=== PATIENT | male | born 1990 | race Asian ===

== ENCOUNTER 2016-11-22 09:28 | Emergency (ER) | payer BC, OTHER ==
[~2016-11-22 09:28] MED LIST: DPKSR250 PO; DPKSR500 PO
[2016-11-22 09:32] VITALS: TEMP 36.7
[2016-11-22] MEDS ORDERED: LIDOCAINE 4% W/AFRIN NASAL SOLN 4ML EXT STA (09:43)
[2016-11-22] MEDS ORDERED: ACETAMINOPHEN SUSP 160 MG/5 ML UDC PO STA (09:43)
--- NOTE | 2016-11-22 09:59 | EMERGENCY ROOM VISIT NOTE ---
History Report prepared by Issaciblyndsey: Yvon Moore Under the Supervision of: Dr. Hugo Waldrop M.D. First contact with patient: 09:36 Chief Complaint: HEAD INJURY (MINOR) Stated Complaint: BAD NOSE BLEED,POSSIBLE CONCUSSION History of Present Illness The patient is a 26 year old male who presents to the Emergency Room with complaints of a head injury occurring last night. The patient has a history of MR. He has a history of seizures, but has not had one in a long time. Per caregiver, the patient was found in the morning with blood on his face and mouth. She notes that there was dried blood on the floor as well. She believes that the patient may have fallen out of his computer chair and hit his face during the night. The patient's caregiver notes that the patient has been very tired ever since the fall. She states that the patient does not fall frequently. She states that the patient took his Depakote today as normal. The patient's caregiver states that the patient has not been complaining of anything over the past several days. The patient's tetanus is up to date. HPI limited secondary to MR. Source of History: patient History Limited By: other (MR) Onset: Last night Position: head Timing: other (episode) Review of Systems ROS limited secondary to MR. Past Medical & Surgical Medical Problems: (1) Epilepsy (2) Mental retardation Family History Unobtainable secondary to MR. Social History Smoking Status: Never Smoker Housing Status: assisted living Current/Historical Medications Scheduled Cyanocobalamin (Vitamin B-12), 1,000 MCG PO PM Divalproex Sodium (Depakote), 3 TAB PO BID Loratadine (Claritin), 10 MG PO QAM Quetiapine Fumarate (Seroquel), 100 MG PO QAM Thiamine Hcl (Vitamin B-1), 50 MG PO QAM Trazodone Hcl (Trazodone), 50 MG PO HS Zinc (Zinc Chelated), 1 TAB PO PM Allergies Coded Allergies: Minocycline (Unverified Allergy, Intermediate, CONTRAINDICATED, 11/22/16) POLLEN (Unverified Allergy, Mild, 11/22/06) Uncoded Allergies: N (Allergy, Unknown, 07/01/02) NKA (Allergy, Unknown, 07/01/02) Physical Exam Vital Signs Date Time Temp Pulse Resp B/P (MAP) Pulse Ox O2 Delivery O2 Flow Rate FiO2 11/22/16 09:32 36.7 117 20 116/73 97 Room Air Physical Exam GENERAL: Patient is in no acute distress. HEENT: Dried blood about his face. Nose is quite swollen and tender, likely fractured. No deformity. Old blood and scant oozing of blood in the nose, primarily on the right. No bony step off noted to the face. Globes appear uninjured. No scalp hematoma. Dried blood on the lips and mouth. No oral or lip lacerations. Slight loosening of the upper right first incisor with some bleeding of the gumline. No dental fractures seen. NECK: No stridor, no adenopathy, no meningismus, trachea is midline. Non-tender cervical spine without step off. LUNGS: Clear to auscultation bilaterally, no wheeze, no rhonchi, breath sounds equal. HEART: Tachycardic with a regular rhythm. No murmurs. ABDOMEN: Soft, nontender, bowel sounds positive, no hernias, no peritonitis. EXTREMITIES: No cyanosis or edema, full range of motion of all the joints without pain or difficulty. Subtle abrasions to the anterior knees and dorsal hands. No evidence for underlying fracture. NEUROLOGIC: MR noted. Moving all extremities equally. Awake and alert. SKIN: No rash, no jaundice, no diaphoresis. Medical Decision & Procedures ER Provider Diagnostic Interpretation: CT results as stated below per my review and radiologist interpretation: CERVICAL SPINE CT FINDINGS: No fractures. No subluxation. Prevertebral soft tissues and the C1-C2 interval are intact. No pneumothorax. IMPRESSION: No fractures within the cervical spine. Mild cervical scoliosis Electronically signed by: Adan Doyle M.D. HEAD WITHOUT CONTRAST (CT) FINDINGS: No acute intracranial hemorrhage, midline shift, mass, large territorial ischemia or abnormal extra-axial collection. The calvarium is intact. Mastoid air cells, and middle ear cavities are clear. Mild mucosal thickening is present within the ethmoid and maxillary sinuses. Bubbly secretions with minimal air-fluid level noted within the left maxillary sinus. IMPRESSION: 1. No acute intracranial abnormality. 2. Mild ethmoid and maxillary sinus disease. Electronically signed by: Jeffrey Anaya FACIAL BONES-MXILLOFAC WITHOUT FINDINGS: The patient is rotated in the gantry.The zygomatic arches, pterygoid plates, maxillary [place], lamina Propecia and mandible are intact. The orbits also appear to be intact. There is a questioned subtle undisplaced fracture of the left nasal bone. There is mild degree of soft tissue swelling of the left prefrontal soft tissues. No radiopaque foreign body or large hematoma. Moderate soft tissue swelling is also present within the central and right paracentral premaxillary tissues. The imaged intracranial structures are unremarkable. The globes are unremarkable. The imaged cervical spine appears intact. There is mild to moderate ethmoid and maxillary sinus disease with areas of polypoid mucosal thickening. Secretions are present within the right nasal turbinate. IMPRESSION: 1. Mild to moderate soft tissue swelling about the face with questioned subtle left nasal bone fracture. No additional facial bone fracture or dislocation is identified. 2. Mild to moderate ethmoid and maxillary sinus disease with areas of polypoid mucosal thickening. The above report was generated using voice recognition software. It may contain grammatical, syntax or spelling errors. Electronically signed by: Jeffrey Anaya Laboratory Results Test 11/22/16 10:07 Valproic Acid (Depakene) Level 71 mcg/ml (50-100) Laboratory results reviewed by me. Medications Administered Medications (Trade) Dose Ordered Sig/Aggie Route Start Time Stop Time Status Last Admin Dose Admin Lidocaine HCl (Afrin W/ Lidocaine 4%) 4 ml NOW STAT EXT 11/22/16 09:43 11/22/16 09:45 DC 11/22/16 09:53 4 ML Acetaminophen (Tylenol Children'S Susp) 650 mg NOW STAT PO 11/22/16 09:43 11/22/16 09:46 DC 11/22/16 09:52 650 MG ED Course 0937: The patient was evaluated in room A4B. A complete history and physical exam was performed. 0943: Ordered Tylenol Children's Susp 650 mg PO, Afrin W/Lidocaine 4% 4 mL EXT. 1115: Reevaluated the patient. His parents have arrived. Discussed results and discharge instructions: the patient's parents and caregiver verbalized understanding and agreement. The patient is ready for discharge. Medical Decision The patient is a 26 year old male who presents to the ED with complaints of a head injury s/p fall. Differential diagnoses considered include but are note limited to; seizure, intracranial bleeding, skull fracture, facial fracture, c- spine fracture, and extremity/chest/abdominal trauma. The patient presents with facial trauma from a fall or possibly from a seizure. He has no evidence clinically for injury to his extremities, chest, abdomen or back. Depakote level is therapeutic. On exam, he had some loosening of his right upper first incisor, no dental fracture, no laceration in the mouth requiring repair. No facial laceration requiring repair. Brain CT shows no acute bleed or mass effect, no skull fracture. C-spine CT shows no fracture. Facial CT shows a subtle nasal fracture, no other fractures identified. The patient was given Afrin to help with the nasal bleeding. He received oral Tylenol for pain. He has done well here. His face was cleansed by our nursing staff. The patient is being discharged. The nasal fracture should heal on its own. He is going to see a dentist for the teeth loosening. I have advised Tylenol, head elevation with sleeping and ice. If worsening, he can return. Impression Primary Impression: Nasal fracture Additional Impression: Facial trauma Scribe Attestation The scribe's documentation has been prepared under my direction and personally reviewed by me in its entirety. I confirm that the note above accurately reflects all work, treatment, procedures, and medical decision making performed by me. Departure Information Dispostion Home / Self-Care Referrals No Doctor, Assigned (PCP) Forms HOME CARE DOCUMENTATION FORM, IMPORTANT VISIT INFORMATION Patient Instructions My [facility] Additional Instructions elevation of head to sleep will help with swelling ice to help with swelling tylenol for pain may use afrin, 1-2 sprays to the nose for persistent bleeding see dentist for the lose tooth return for worsening symptoms Problem Qualifiers
[2016-11-22] MEDS ORDERED: QUET1TAB9 PO (10:17)
[2016-11-22] MEDS ORDERED: DIVA125T18 PO (10:17)
[2016-11-22] MEDS ORDERED: THIA50TA3 PO (10:17)
[2016-11-22] MEDS ORDERED: ZINC1TAB PO (10:17)
[2016-11-22] MEDS ORDERED: CLR10 PO (10:17)
[2016-11-22] MEDS ORDERED: CYAN10005 PO (10:17)
[2016-11-22] MEDS ORDERED: TRAZ50TA35 PO (10:17)
--- NOTE | 2016-11-22 10:52 | DIAGNOSTIC IMAGING REPORT ---
FACIAL BONES-MXILLOFAC WITHOUT HISTORY:26 yearsMalefall, trauma. COMPARISON: CT head of same day. TECHNIQUE: Multiple axial CT images of the maxillofacial bones were obtained without IV contrast. Coronal reformatted images were obtained from the axial data set and submitted for review. FINDINGS: The patient is rotated in the gantry.The zygomatic arches, pterygoid plates, maxillary [place], lamina Propecia and mandible are intact. The orbits also appear to be intact. There is a questioned subtle undisplaced fracture of the left nasal bone. There is mild degree of soft tissue swelling of the left prefrontal soft tissues. No radiopaque foreign body or large hematoma. Moderate soft tissue swelling is also present within the central and right paracentral premaxillary tissues. The imaged intracranial structures are unremarkable. The globes are unremarkable. The imaged cervical spine appears intact. There is mild to moderate ethmoid and maxillary sinus disease with areas of polypoid mucosal thickening. Secretions are present within the right nasal turbinate. IMPRESSION: 1. Mild to moderate soft tissue swelling about the face with questioned subtle left nasal bone fracture. No additional facial bone fracture or dislocation is identified. 2. Mild to moderate ethmoid and maxillary sinus disease with areas of polypoid mucosal thickening. The above report was generated using voice recognition software. It may contain grammatical, syntax or spelling errors. Electronically signed by: Jeffrey Anaya 11/22/2016 10:49 AM Dictated Date/Time: 11/22/2016 10:40 AM
--- NOTE | 2016-11-22 10:52 | DIAGNOSTIC IMAGING REPORT ---
HEAD WITHOUT CONTRAST (CT) HISTORY: 18-year-old male presents with acute head injury status post fall. TECHNIQUE: Multiple axial CT images of the head were obtained without contrast. COMPARISON: Head CT 11/22/2006. FINDINGS: No acute intracranial hemorrhage, midline shift, mass, large territorial ischemia or abnormal extra-axial collection. The calvarium is intact. Mastoid air cells, and middle ear cavities are clear. Mild mucosal thickening is present within the ethmoid and maxillary sinuses. Bubbly secretions with minimal air-fluid level noted within the left maxillary sinus. IMPRESSION: 1. No acute intracranial abnormality. 2. Mild ethmoid and maxillary sinus disease. Electronically signed by: Jeffrey Anaya 11/22/2016 10:39 AM Dictated Date/Time: 11/22/2016 10:37 AM
--- NOTE | 2016-11-22 10:52 | DIAGNOSTIC IMAGING REPORT ---
CERVICAL SPINE CT CT DOSE: 1123.86 mGy.cm HISTORY: Trauma. Pain. fall, trauma, mh TECHNIQUE: Multiaxial CT images of the cervical spine were performed and reformatted in the sagittal and coronal plane without the use of contrast. COMPARISON: None. FINDINGS: No fractures. No subluxation. Prevertebral soft tissues and the C1-C2 interval are intact. No pneumothorax. IMPRESSION: No fractures within the cervical spine. Mild cervical scoliosis Electronically signed by: Adan Doyle M.D. 11/22/2016 10:38 AM Dictated Date/Time: 11/22/2016 10:36 AM
[2016-11-22 11:49] VITALS: BP 120/68; PULSE 90; O2SAT 98
== END 2016-11-22 11:52 | disposition home or self-care (01) ==
LOC: C.EDB 09:29 → C.EDA 11:52
DX: S02.2XXA Fracture of nasal bones, initial encounter for closed fracture (principal); W07.XXXA Fall from chair, initial encounter; I34.0 Nonrheumatic mitral (valve) insufficiency; G40.909 Epilepsy, unspecified, not intractable, without status epilepticus; F79 Unspecified intellectual disabilities; Z79.899 Other long term (current) drug therapy

== ENCOUNTER 2016-12-08 09:51 | Emergency (ER) | payer BC, OTHER ==
[~2016-12-08] VITALS: Ht 167.6 cm; Wt 80.8 kg
[~2016-12-08 09:51] MED LIST changes: +CLR10 PO; +CYAN10005 PO; +DIVA125T18 PO; -DPKSR250 PO; -DPKSR500 PO; +QUET1TAB9 PO; +THIA50TA3 PO; +TRAZ50TA35 PO; +ZINC1TAB PO
[2016-12-08 09:55] VITALS: TEMP 36.5; Ht 167.6 cm; Wt 80.8 kg
[2016-12-08] MEDS ORDERED: LORAZEPAM 2 MG/ML 1 ML VIAL IV STA ×2 (10:32→11:32)
[2016-12-08] MEDS ORDERED: XYLOCAINE 1%/SOD BICARB 20 ML VIAL INFIL STA (10:32)
[2016-12-08] MEDS ORDERED: DIVALPROEX 500 MG EXTENDED RELEASE TAB PO STA (10:42)
[2016-12-08] MEDS ORDERED: SODIUM CHLORIDE 0.9% 1000ML 1,000 ML IV STA (10:44)
--- NOTE | 2016-12-08 10:44 | EMERGENCY ROOM VISIT NOTE ---
History Report prepared by Emelyn: Nighat Walls Under the Supervision of: Dr. Saul Valdez M.D. First contact with patient: 10:00 Chief Complaint: SEIZURE Stated Complaint: SEIZURE History of Present Illness The patient is a 26 year old male who presents to the Emergency Room with complaints of an episode of a seizure beginning just EMT/PARAMEDIC. The patient's parents report that the patient has a history of mental disability and seizures and has been on Depakote for 10 years. They report that the patient had one episode of a seizure 10 years ago and has not had one since then. They note that when the patient was seen here 2 weeks ago he had loss of consciousness and a nasal bone fracture. They report that there was concern that he had another seizure. The patient's caregiver states that the patient is on Seroquel, Trazodone, and Depakote and was put on the Seroquel and Trazodone 1 month ago to help the patient's sleep. She reports that no one saw the patient's fall either time. Today the parents report that the patient was in the room alone when the episode occurred and they only saw him fall to the ground onto his face. They note that he was slightly confused after the episode and was disoriented. Since then, they state that he is back at baseline and deny any confusion. They note that he does see a neurologist at [facility]. Source of History: parent, caregiver Onset: just EMT/PARAMEDIC Position: other (global) Quality: other (seizure) Timing: other (episode) Associated Symptoms: + LOC Note: Parents complain of disorientation after LOC. They deny and confusion now. Review of Systems See HPI for pertinent positives & negatives. A total of 10 systems reviewed and were otherwise negative. Past Medical & Surgical Medical Problems: (1) Epilepsy (2) Mental retardation Family History No pertinent family history stated. Social History Smoking Status: Never Smoker Marital Status: single Housing Status: assisted living Occupation Status: disabled Current/Historical Medications Scheduled Amoxicillin (Amoxil), 500 MG PO TID Cyanocobalamin (Vitamin B-12), 1,000 MCG PO PM Divalproex Sodium (Depakote), 3 TAB PO BID Divalproex Sodium (Depakote Delay Rel), 500 MG PO BID Loratadine (Claritin), 10 MG PO QAM Quetiapine Fumarate (Seroquel), 100 MG PO QAM Thiamine Hcl (Vitamin B-1), 50 MG PO QAM Trazodone Hcl (Trazodone), 50 MG PO HS Zinc (Zinc Chelated), 1 TAB PO PM Allergies Coded Allergies: Minocycline (Unverified Allergy, Intermediate, CONTRAINDICATED, 12/08/16) POLLEN (Unverified Allergy, Mild, 12/08/16) Physical Exam Vital Signs Date Time Temp Pulse Resp B/P (MAP) Pulse Ox O2 Delivery O2 Flow Rate FiO2 12/08/16 15:30 127 22 119/89 99 Room Air 12/08/16 15:00 125 20 126/83 99 Room Air 12/08/16 14:30 126 22 127/81 98 Room Air 12/08/16 13:45 120 22 124/77 100 Nasal Cannula 2.0 12/08/16 13:30 130 26 133/80 100 Nasal Cannula 2.0 12/08/16 13:15 129 20 135/86 100 Nasal Cannula 2.0 12/08/16 13:07 126 12/08/16 13:00 128 25 124/83 100 Nasal Cannula 2.0 12/08/16 12:50 113 19 128/76 100 Nasal Cannula 6.0 12/08/16 12:45 115 18 112/76 100 Nasal Cannula 6.0 12/08/16 12:40 118 19 122/64 100 Nasal Cannula 6.0 12/08/16 12:35 127 7 127/79 100 Nasal Cannula 6.0 12/08/16 12:30 133 6 117/83 98 Room Air 12/08/16 12:25 119 10 153/81 98 Room Air 12/08/16 12:22 130 20 153/81 100 Room Air 12/08/16 11:30 119 18 128/79 98 Room Air 12/08/16 11:00 128 19 137/89 96 Room Air 12/08/16 10:03 146 12/08/16 09:55 36.5 149 16 137/76 96 Room Air 12/08/16 09:55 96 Room Air 12/08/16 09:55 96 Room Air 12/08/16 09:55 36.5 149 16 137/76 96 Room Air Physical Exam GENERAL: Patient is a healthy-appearing well-nourished male HEAD: Large contusion to the forehead that is about 2x2 inches. Small abrasion to the bridge of the nose. There is a 2.6 cm laceration to the upper lip. EYES: Ocular movements intact pupils equal and react to light OROPHARYNX mucous membranes are moist no exudates present no erythema or edema present NECK: Supple no nuchal rigidity CHEST: Good equal expansion LUNGS: Clear and equal to auscultation CARDIAC: Normal S1 and S2 ABDOMEN: Soft nontender no guarding BACK: No CVA tenderness EXTREMITIES: No pain upon palpation normal muscle strength in all groups no clubbing cyanosis or edema NEURO: Patient is following commands. Alert and oriented x3 Cranial Nerves 2-12 grossly intact Medical Decision & Procedures ER Provider Diagnostic Interpretation: CT results as stated below per my review and radiologist interpretation: CT HEAD WITHOUT CONTRAST (CT) FINDINGS: No intra or extra-axial mass lesions are visualized. There is no CT evidence of acute cortical infarction. There is no evidence of midline shift. There is no acute hemorrhage. There is a frontal scalp hematoma. There is perinasal edema. There is a nasal septal fracture. There is no evidence of pathologic ventricular dilatation. There is no evidence of acute sinusitis IMPRESSION: 1. Frontal scalp hematoma 2. Nasal septal fracture and paranasal edema 3. No evidence of acute intracranial hemorrhage Electronically signed by: Andrez Cantor M.D. 12/08/2016 11:21 AM Dictated Date/Time: 12/08/2016 11:18 AM Laboratory Results 12/08/16 10:10 Red Blood Count 4.80, Mean Corpuscular Volume 85.6, Mean Corpuscular Hemoglobin 29.6, Mean Corpuscular Hemoglobin Concent 34.5, Mean Platelet Volume 10.8, Neutrophils (%) (Auto) 50.1, Lymphocytes (%) (Auto) 40.0, Monocytes (%) (Auto) 7.5, Eosinophils (%) (Auto) 1.5, Basophils (%) (Auto) 0.4, Neutrophils # (Auto) 4.08, Lymphocytes # (Auto) 3.26, Monocytes # (Auto) 0.61, Eosinophils # (Auto) 0.12, Basophils # (Auto) 0.03 12/08/16 10:10 Test 12/08/16 10:10 12/08/16 11:06 White Blood Count 8.14 K/uL (4.8-10.8) Red Blood Count 4.80 M/uL (4.7-6.1) Hemoglobin 14.2 g/dL (14.0-18.0) Hematocrit 41.1 % (42-52) Mean Corpuscular Volume 85.6 fL (80-100) Mean Corpuscular Hemoglobin 29.6 pg (25-34) Mean Corpuscular Hemoglobin Concent 34.5 g/dl (32-36) Platelet Count 268 K/uL (130-400) Mean Platelet Volume 10.8 fL (7.4-10.4) Neutrophils (%) (Auto) 50.1 % Lymphocytes (%) (Auto) 40.0 % Monocytes (%) (Auto) 7.5 % Eosinophils (%) (Auto) 1.5 % Basophils (%) (Auto) 0.4 % Neutrophils # (Auto) 4.08 K/uL (1.4-6.5) Lymphocytes # (Auto) 3.26 K/uL (1.2-3.4) Monocytes # (Auto) 0.61 K/uL (0.11-0.59) Eosinophils # (Auto) 0.12 K/uL (0-0.5) Basophils # (Auto) 0.03 K/uL (0-0.2) RDW Standard Deviation 37.1 fL (36.4-46.3) RDW Coefficient of Variation 12.0 % (11.5-14.5) Immature Granulocyte % (Auto) 0.5 % Immature Granulocyte # (Auto) 0.04 K/uL (0.00-0.02) Anion Gap 10.0 mmol/L (3-11) Est Creatinine Clear Calc Drug Dose 140.8 ml/min Estimated GFR () 142.4 Estimated GFR (Non- 122.8 BUN/Creatinine Ratio 16.4 (10-20) Calcium Level 8.9 mg/dl (8.5-10.1) Phosphorus Level 2.3 mg/dl (2.5-4.9) Magnesium Level 2.3 mg/dl (1.8-2.4) Thyroid Stimulating Hormone (TSH) 0.414 uIu/ml (0.300-4.500) Valproic Acid (Depakene) Level 73 mcg/ml (50-100) Bedside Glucose 109 mg/dl (70-99) Labs reviewed by ED physician. Medications Administered Medications (Trade) Dose Ordered Sig/Aggie Route Start Time Stop Time Status Last Admin Dose Admin Lorazepam (Ativan Inj) 1 mg NOW STAT IV 12/08/16 10:32 12/08/16 10:34 DC 12/08/16 10:52 1 MG Lidocaine HCl (Buffered Lidocaine 1% Inj) 20 ml ONE STAT INFIL 12/08/16 10:32 12/08/16 10:34 DC 12/08/16 10:52 20 ML Divalproex Sodium (Depakote Extended Rel Tab) 500 mg NOW STAT PO 12/08/16 10:42 12/08/16 10:44 DC 12/08/16 10:52 500 MG Sodium Chloride 1,000 ml @ 999 mls/hr Q1H1M STAT IV 12/08/16 10:44 12/08/16 11:44 DC 12/08/16 10:54 999 MLS/HR Lorazepam (Ativan Inj) 1 mg NOW STAT IV 12/08/16 11:32 12/08/16 11:33 DC 12/08/16 11:39 1 MG Ketamine HCl (Ketalar Steri-Vial Inj) 40 mg NOW STAT IV 12/08/16 12:06 12/08/16 12:07 DC 12/08/16 12:49 40 MG Propofol (Diprivan Iv Emulsion 20ml Vial) 40 mg NOW STAT IV 12/08/16 12:06 12/08/16 12:07 DC 12/08/16 12:48 190 MG Metoclopramide HCl (Reglan Inj) 10 mg NOW STAT IV 12/08/16 12:06 12/08/16 12:07 DC 12/08/16 12:23 10 MG Procedure Procedural Sedation Indication: Laceration Repair. Total time: 19 minutes. Written consent was obtained after the risks and benefits were explained to the patient's parents, including, but not limited to aspiration, allergic reaction, breathing difficulties, cardiac complications, vomiting, pain, event recall, bleeding, and/or infection. Pre-sedation examination and paperwork completed. The patient was on 100% oxygen via NRB prior to the procedure. Continous end tidal CO2 monitoring, pulse oximetry, and cardiac monitoring were utilized. Suction, airway equipment, medications, respiratory equipment, and appropriate personnel were prepared prior to the initiation of the procedure. A time out was taken. Sedation was achieved utilizing 40 mg of Ketamine and 20 of Aliquots. After I observed the patient had reached the appropriate level of sedation the main procedure was performed without complication. Sedation was discontinued and the monitoring continued. The patient recovered quickly from the effects of the medication without complication or adverse event. ECG Indication: other (seizure) Rate (beats per minute): 148 Rhythm: sinus tachycardia Findings: no acute ischemic change, no ectopy ED Course 1000: Past medical records reviewed. The patient was evaluated in room A3. A complete history and physical examination was performed. 1032: Lidocaine HCl 20ml INFIL, Ativan Inj 1mg IV. 1038: I discussed the patient's case with Dr. Gould, he said to give 500mg of Depakote to the patient now and increase the Depakote to 4 pills twice a day. He would like the patient to stop taking the Trazodone. 1042: Divalproex Sodium 500mg PO. 1044: Sodium Chloride 1000 ml @ 999 mls/hr IV. 1132: Ativan Inj 1mg IV. 1206: Reglan Inj 10mg IV, Propofol 40mg IV, Ketamine HCl 40mg IV. 1222: See procedure note for procedural sedation. 1336: Upon reexamination the patient is doing well. I discussed results and treatment plan with the patient's family. They verbalize agreement and understanding. The patient is ready for discharge. Medical Decision Differential diagnosis: Etiologies such as infection, hypoglycemia, electrolyte abnormalities, cardiac sources, intracerebral event, trauma, toxicologic, neurologic, as well as others were entertained. This is a 26-year-old male who presents emergency department complaining of seizure. The patient was seen several weeks ago here in emergency department for what was presumed to be a fall however in retrospect after today's events I do believe it was a seizure. The patient recently was placed on trazodone and Seroquel so I did discuss the case with Dr. Perkins who is on-call for neurology. She asked that the trazodone be stopped and that his Depakote be increased. Myself and my physician assistant production editor tried multiple times to close this patient's wounds by using Ativan however he will not tolerate the procedure and for this a conscious sedation had to be performed. This was done as above. The patient's lacerations were closed by Andre Ballesteros. Head Trauma GCS Score: 14 Medication Reconcilliation Current Medication List: was personally reviewed by me Blood Pressure Screening Patient's blood pressure: Elevated blood pressure Blood pressure disposition: Referred to PCP Consults Time Called: 1035 Consulting Physician: Dr. Gould Returned Call: 1038 I discussed the patient's case with Dr. Gould, he said to give 500mg of Depakote to the patient now and increase the Depakote to 4 pills twice a day. He would like the patient to stop taking the Trazodone. Impression Primary Impression: Seizure Additional Impression: Laceration Scribe Attestation The scribe's documentation has been prepared under my direction and personally reviewed by me in its entirety. I confirm that the note above accurately reflects all work, treatment, procedures, and medical decision making performed by me. Departure Information Dispostion Home / Self-Care Prescriptions Amoxicillin (AMOXIL) 500 Mg Cap 500 MG PO TID for 10 Days, #30 CAP Prov: Saul Valdez MD 12/08/16 Divalproex Sodium (DEPAKOTE DELAY REL) 125 Mg Tab 500 MG PO BID for 30 Days, #240 TAB Prov: Saul Valdez MD 12/08/16 Referrals Nelson Henson, D.Raman (PCP) Forms HOME CARE DOCUMENTATION FORM, IMPORTANT VISIT INFORMATION Patient Instructions ED Fx Nose W Lac Skin Glue, ED Laceration All, ED Sedation Procedural Discon, My [facility] Additional Instructions Follow up with Dr Morris's office STOP taking Trazadone Increase Depakote to 125 mg 4 times a day You were found to have an elevated blood pressure today (>120 sytolic or >90 diastolic). Per medicare guidelines, you need to follow up with this blood pressure screening with your Primary Care Physician (PCP). For a new PCP call [phone]. You have been examined and treated today on an emergency basis only. This is not a substitute for, or an effort to provide, complete comprehensive medical care. It is impossible to recognize and treat all injuries or illnesses in a single emergency department visit. It is therefore important that you follow up closely with Dr Henson. Call as soon as possible for an appointment. Thank you for your time and consideration. I look forward to speaking with you again soon. Please don't hesitate to call us if you have any questions. Problem Qualifiers
[2016-12-08 11:03] LABS: BASO % 0.4 %; BASO ABS # 0.03 K/uL (0-0.2); COMPLETE YES; EOS % 1.5 %; HEMATOCRIT 41.1 % (42-52); IG% 0.5 %; LYMPH ABS # 3.26 K/uL (1.2-3.4); MEAN CELL VOLUME 85.6 fL (80-100); MEAN CORPUSCULAR HEMOGLOBIN 29.6 pg (25-34); MEAN CORPUSCULAR HGB CONC 34.5 g/dl (32-36); MEAN PLATELET VOLUME 10.8 fL (7.4-10.4); MONO % 7.5 %; NEUT % 50.1 %; PLATELET COUNT 268 K/uL (130-400); WHITE BLOOD COUNT 8.14 K/uL (4.8-10.8)
[2016-12-08 11:11] LABS: BUN/CREATININE RATIO 16.4 (10-20); CALCIUM 8.9 mg/dl (8.5-10.1); CREATININE 0.78 mg/dl (0.60-1.40); MAGNESIUM 2.3 mg/dl (1.8-2.4); POTASSIUM 3.6 mmol/L (3.5-5.1)
[2016-12-08 11:22] LABS: PHOSPHORUS 2.3 mg/dl (2.5-4.9); THYROID STIMULATING HORMONE 0.414 uIu/ml (0.300-4.500)
--- NOTE | 2016-12-08 11:22 | DIAGNOSTIC IMAGING REPORT ---
CT HEAD WITHOUT CONTRAST (CT) CLINICAL HISTORY: Seizure. Head trauma. COMPARISON STUDY: 11/22/2016 TECHNIQUE: Axial CT of the brain is performed from the vertex to the skull base. IV contrast was not administered for this examination. A dose lowering technique was utilized adhering to the principles of ALARA. CT DOSE: 687.98 mGy.cm FINDINGS: No intra or extra-axial mass lesions are visualized. There is no CT evidence of acute cortical infarction. There is no evidence of midline shift. There is no acute hemorrhage. There is a frontal scalp hematoma. There is perinasal edema. There is a nasal septal fracture. There is no evidence of pathologic ventricular dilatation. There is no evidence of acute sinusitis IMPRESSION: 1. Frontal scalp hematoma 2. Nasal septal fracture and paranasal edema 3. No evidence of acute intracranial hemorrhage Electronically signed by: Andrez Cantor M.D. 12/08/2016 11:21 AM Dictated Date/Time: 12/08/2016 11:18 AM
[2016-12-08] MEDS ORDERED: METOCLOPRAMIDE HCL INJ 5 MG/ML 2 ML VIAL IV STA (12:06)
[2016-12-08] MEDS ORDERED: KETAMINE HCL INJ 50 MG/ML 10 ML VIAL IV STA (12:06)
[2016-12-08] MEDS ORDERED: PROPOFOL IV EMULSION 10 MG/ML 20 ML VIAL IV STA (12:06)
[2016-12-08 12:22] VITALS: BP 153/81; PULSE 130; O2SAT 100
[2016-12-08 12:25] VITALS: BP 153/81; PULSE 119; O2SAT 98
--- NOTE | 2016-12-08 12:48 | EMERGENCY ROOM VISIT NOTE ---
Post-Moderate Sedation Plan General Date of Moderate Sedation Dec 08, 2016. Vital Signs: Vital Signs Past 12 Hours Date Time Temp Pulse Resp B/P (MAP) Pulse Ox O2 Delivery O2 Flow Rate FiO2 12/08/16 11:30 119 18 128/79 98 Room Air 12/08/16 11:00 128 19 137/89 96 Room Air 12/08/16 10:03 146 12/08/16 09:55 36.5 149 16 137/76 96 Room Air 12/08/16 09:55 96 Room Air 12/08/16 09:55 96 Room Air 12/08/16 09:55 36.5 149 16 137/76 96 Room Air Review - Discharge Plan Post Moderate Sedation Plan: On clinical assessment, the patient appears to have tolerated the conscious sedation without complications. Patient is recovering as anticipated. Patient will continue to be monitored by nursing and may be discharged when conscious sedation discharge criteria are met.
--- NOTE | 2016-12-08 12:48 | EMERGENCY ROOM VISIT NOTE ---
Pre-Mod Sedation Assessment General Date of Moderate Sedation: Dec 08, 2016. Vital Signs: Vital Signs Past 12 Hours Date Time Temp Pulse Resp B/P (MAP) Pulse Ox O2 Delivery O2 Flow Rate FiO2 12/08/16 11:30 119 18 128/79 98 Room Air 12/08/16 11:00 128 19 137/89 96 Room Air 12/08/16 10:03 146 12/08/16 09:55 36.5 149 16 137/76 96 Room Air 12/08/16 09:55 96 Room Air 12/08/16 09:55 96 Room Air 12/08/16 09:55 36.5 149 16 137/76 96 Room Air Review Cardiovascular: regular rate, rhythm, no edema, no gallop, no JVD, no murmur, normal peripheral pulses Abdomen: normal bowel sounds, non tender, soft, no organomegaly, no pulsatile mass, normal rectal exam, occult blood negative Lungs: chest non-tender, lungs clear, normal breath sounds, no respiratory distress, no accessory muscle use Airway Class: II Pre-Sedation Airway Assessment Oral Cavity: Dental Abnormalities Able to Visualize Vocal Cords: No Short Thick Neck: Yes Hx of Sleep Apnea: No Smoking Status: Never Smoker Mallampati Classification: Class II (Sft palate,uvula,fauces visib.) ASA Classification: Class II Procedure Planning Contraindications-for Mod Sed: None Yes Notes The planned sedation has been discussed with the patient and consent obtained. I have identified the patient, determined the appropriateness of sedation and have assessed the patient immediately prior to the procedure. All medicine(s) and interventions are by my order.
[2016-12-08] MEDS ORDERED: DIVA1TAB86 PO (13:31)
[2016-12-08] MEDS ORDERED: AMOX500C3 PO (13:32)
--- NOTE | 2016-12-08 13:46 | EMERGENCY ROOM VISIT NOTE ---
ED Visit Note Patient was seen and evaluated by Dr. Valdez. I was asked to perform primary wound closure. Risks and benefits of performing primary wound closure versus no repair were discussed with the patient who verbalizes understanding. Verbal consent was obtained prior to performing the procedure. 4 cc of 1 percent buffered lidocaine was used to anesthetize the top lip laceration. The wound was cleansed and prepped in the typical sterile fashion utilizing normal saline. Dissolvable sutures were chosen secondary to underlying comorbidities. The wound was sterilely draped. Once proper anesthetization was established, the wound was further examined and demonstrated a complex lip laceration, that is on the anterior upper portion of the lip as well as the lower. The top portion is approximately 3 cm in total length, and the inferior is 1cm in length. Total laceration length is 4cm. The wound was copiously irrigated with normal saline. The wound was closed using 9 simple, 4-0 Vicryl sutures with the wound edges being well approximated. Patient tolerated the procedure well. No complications were met. I
[2016-12-08] MEDS ORDERED: AMOXICILLIN 250 MG CAP PO STA (16:31)
[2016-12-08] MEDS ORDERED: AMOXICILLIN 500 MG/10 ML UDP PO STA (16:42)
[2016-12-08] MEDS ORDERED: AMXUD2505 PO (16:44)
[2016-12-08] MEDS ORDERED: AMOXICILLIN HOME PACK 250 MG/TAB PO ONE (16:45)
[2016-12-08] MEDS ORDERED: AMOXICILLIN SUSP 250 MG/5 ML 100 ML BTL ONE (16:45)
[2016-12-08 17:21] VITALS: BP 128/85; PULSE 125; O2SAT 98
== END 2016-12-08 17:00 | disposition home or self-care (01) ==
LOC: EDBD 09:51 → C.EDA 09:54
DX: R56.9 Unspecified convulsions (principal); S01.511A Laceration without foreign body of lip, initial encounter; W19.XXXA Unspecified fall, initial encounter; S00.83XA Contusion of other part of head, initial encounter; S00.31XA Abrasion of nose, initial encounter; R00.0 Tachycardia, unspecified; F79 Unspecified intellectual disabilities

== ENCOUNTER → 2017-06-27 | Outpatient (CLI) | payer OTHER ==
[~2017-06-27] MED LIST changes: +AMXUD2505 PO
[2017-06-27 09:38] LABS: BASO % 0.7 %; BASO ABS # 0.04 K/uL (0-0.2); EOS % 1.9 %; EOS ABS # 0.11 K/uL (0-0.5); HEMATOCRIT 46.8 % (42-52); HEMOGLOBIN 16.3 g/dL (14.0-18.0); IG# 0.02 K/uL (0.00-0.02); LYMPH % 41.7 %; LYMPH ABS # 2.42 K/uL (1.2-3.4); MEAN CELL VOLUME 88.3 fL (80-100); MEAN CORPUSCULAR HEMOGLOBIN 30.8 pg (25-34); MEAN CORPUSCULAR HGB CONC 34.8 g/dl (32-36); MEAN PLATELET VOLUME 11.3 fL (7.4-10.4); MONO % 7.6 %; MONO ABS # 0.44 K/uL (0.11-0.59); NEUT % 47.8 %; NEUT ABS # 2.78 K/uL (1.4-6.5); PLATELET COUNT 230 K/uL (130-400); RED CELL DISTRIBUTION WIDTH CV 12.6 % (11.5-14.5); RED CELL DISTRIBUTION WIDTH SD 40.5 fL (36.4-46.3); WHITE BLOOD COUNT 5.81 K/uL (4.8-10.8)
[2017-06-27 10:02] LABS: ALBUMIN 4.5 gm/dl (3.4-5.0); ALT/SGPT 54 U/L (12-78); BLOOD UREA NITROGEN 16 mg/dl (7-18); CALCIUM 9.4 mg/dl (8.5-10.1); CARBON DIOXIDE 28 mmol/L (21-32); CREATININE 0.76 mg/dl (0.60-1.40); GLUCOSE 93 mg/dl (70-99); POTASSIUM 3.7 mmol/L (3.5-5.1); SODIUM 140 mmol/L (136-145)
[2017-06-27 10:05] LABS: ALKALINE PHOSPHATASE 72 U/L (45-117); AST/SGOT 25 U/L (15-37); TOTAL PROTEIN 8.2 gm/dl (6.4-8.2)
== END | disposition home or self-care (01) ==
LOC: C.LAB 09:00
PROVIDERS: ATTEND Psychiatry & Neurology Neurology
DX: G40.109 Localization-related (focal) (partial) symptomatic epilepsy and epileptic syndromes with simple partial seizures, not intractable, without status epilepticus (principal); Z51.81 Encounter for therapeutic drug level monitoring

== ENCOUNTER → 2017-12-30 | Outpatient (CLI) | payer OTHER ==
[2017-12-30 10:37] LABS: BASO % 0.8 %; BASO ABS # 0.05 K/uL (0-0.2); EOS % 2.8 %; EOS ABS # 0.18 K/uL (0-0.5); HEMATOCRIT 45.8 % (42-52); HEMOGLOBIN 15.5 g/dL (14.0-18.0); IG# 0.02 K/uL (0.00-0.02); LYMPH % 43.9 %; LYMPH ABS # 2.86 K/uL (1.2-3.4); MEAN CELL VOLUME 88.1 fL (80-100); MEAN CORPUSCULAR HEMOGLOBIN 29.8 pg (25-34); MEAN CORPUSCULAR HGB CONC 33.8 g/dl (32-36); MEAN PLATELET VOLUME 11.8 fL (7.4-10.4); MONO % 7.7 %; NEUT % 44.5 %; NEUT ABS # 2.91 K/uL (1.4-6.5); PLATELET COUNT 252 K/uL (130-400); RED CELL DISTRIBUTION WIDTH CV 12.1 % (11.5-14.5); RED CELL DISTRIBUTION WIDTH SD 38.4 fL (36.4-46.3); WHITE BLOOD COUNT 6.52 K/uL (4.8-10.8)
[2017-12-30 10:56] LABS: ALBUMIN 4.5 gm/dl (3.4-5.0); ALKALINE PHOSPHATASE 67 U/L (45-117); ALT/SGPT 73 U/L (12-78); AST/SGOT 34 U/L (15-37); BLOOD UREA NITROGEN 12 mg/dl (7-18); CALCIUM 9.3 mg/dl (8.5-10.1); CARBON DIOXIDE 29 mmol/L (21-32); CREATININE 0.76 mg/dl (0.60-1.40); GLUCOSE 92 mg/dl (70-99); SODIUM 139 mmol/L (136-145); TOTAL PROTEIN 8.1 gm/dl (6.4-8.2)
== END | disposition home or self-care (01) ==
LOC: C.LABBC 07:48
PROVIDERS: ATTEND Psychiatry & Neurology Neurology
DX: Z51.81 Encounter for therapeutic drug level monitoring (principal); Z79.899 Other long term (current) drug therapy; G40.109 Localization-related (focal) (partial) symptomatic epilepsy and epileptic syndromes with simple partial seizures, not intractable, without status epilepticus; E55.9 Vitamin D deficiency, unspecified